=== PATIENT | female | born 1965 | race Two or more races ===

== ENCOUNTER 2019-12-20 08:07 | Observation (INO) | payer SELFPAY ==
[~2019-12-20] VITALS: Ht 160 cm; Wt 74.6 kg
--- NOTE | 2019-12-20 08:39 | NUR ---
PT AMBULATORY TO ROOM 9 W/ C/O RUQ ABD PAIN, SORE THROAT AND PAIN THAT RADIATES FROM ABDOMEN TO CHEST STARTED 1 MONTH AGO. PT STATES SHE DOES NOT HAVE ANY MEDICAL PROBLEMS. PT RESTING ON CAR[place]WO. NADN. MONITORS APPLIED. VSS. ERP DR. TONEY AT BEDSIDE. Addendum: 12/20/19 at 0841 by BNICHOLS PT ALSO HAS C/O SOB STARTED 1 MONTH AGO. DENIES COUGH/CLOSE CONTACT W/ CONFIRMED CASE COVID-19.
[2019-12-20] MEDS ORDERED: ASPIRIN 81 MG TABLET CHEW ONE (08:49)
--- NOTE | 2019-12-20 08:54 | NUR ---
REPORT GIVEN TO SHAYNA HE.
[2019-12-20] MEDS ORDERED: SODIUM CHLORIDE FLUSH 10ML SYR IVF ONE (09:00)
[2019-12-20] MEDS ORDERED: ASPIRIN 81 MG TABLET CHEW PO ONE (09:00)
[2019-12-20 09:18] LABS: BASOPHILS # (AUTO) 0.03 x10^3/uL (0-0.1); BASOPHILS % (AUTO) 1 % (0-1); EOSINOPHILS # (AUTO) 0.06 x10^3/uL (0-0.4); EOSINOPHILS % (AUTO) 1 % (1-7); LYMPHOCYTES # (AUTO) 1.77 x10^3/uL (1-3.4); LYMPHOCYTES % (AUTO) 32 % (22-44); MD NO; MEAN CORPUSCULAR HEMOGLOBIN 28.7 pg (27.0-34.8); MEAN CORPUSCULAR HGB CONC 33.3 g/dL (32.4-35.8); MEAN CORPUSCULAR VOLUME 86.1 fL (80-100); MEAN PLATELET VOLUME 8.6 fL (7.4-10.4); MONOCYTES # (AUTO) 0.39 x10^3/uL (0.2-0.8); MONOCYTES % (AUTO) 7 % (2-9); NEUTROPHILS # (AUTO) 3.29 x10^3/uL (1.8-6.8); NEUTROPHILS % (AUTO) 59 % (42-75); PLATELET COUNT 290 x10^3/uL (130-400); RED BLOOD COUNT 5.04 x10^6/uL (3.82-5.3); RED CELL DISTRIBUTION WIDTH 13.4 % (9.6-15.2)
[2019-12-20 09:30] LABS: ALBUMIN 3.8 g/dL (3.4-5.0); ANION GAP 5 mmol/L (5-15); CALCIUM 8.8 mg/dL (8.5-10.1); CHLORIDE 112 mmol/L (98-107)
[2019-12-20 09:36] LABS: ALANINE AMINOTRANSFERASE 30 U/L (12-78); ALKALINE PHOSPHATASE 81 U/L (45-117); BILIRUBIN,TOTAL 0.9 mg/dL (0.2-1.0); CREATININE 0.68 mg/dL (0.55-1.02); TOTAL PROTEIN 7.7 g/dL (6.4-8.2); TROPONIN I < 0.015 ng/mL (0.000-0.045)
[2019-12-20 09:39] LABS: MICROSCOPIC INDICATED
[2019-12-20] MEDS ORDERED: hydrALAzine 20 MG/ML, 1ML IVPush PRN (11:30)
[2019-12-20] MEDS ORDERED: LABETALOL 5MG/ML, 20ML IVPush PRN (11:30)
[2019-12-20] MEDS ORDERED: morphine SULFATE 10 MG/ML, 1ML IVPush PRN (11:30)
[2019-12-20] MEDS ORDERED: PROMETHAZINE 25 MG/ML, 1ML IM PRN (11:30)
[2019-12-20] MEDS ORDERED: PANTOPRAZOLE 40 MG IV IVPush SCH (11:30)
[2019-12-20] MEDS ORDERED: ACETAMINOPHEN 325 MG TABLET PO PRN (11:30)
[2019-12-20] MEDS ORDERED: ONDANSETRON 2MG/ML, 2ML IVPush PRN (11:30)
[2019-12-20 12:02] LABS: CHOLESTEROL, TOTAL 200 mg/dL (140-239)
[2019-12-20 12:05] LABS: CHOL/HDL RATIO 3.8; HDL CHOL % 26 % (28-40); HDL CHOLESTEROL (DIRECT) 52 mg/dL (40-60); LDL CHOLESTEROL,CALCULATED 130 mg/dL (54-169); LDL/HDL RATIO 2.5 (0.5-3.0); TRIGLYCERIDES 89 mg/dL (50-200); TROPONIN I < 0.015 ng/mL (0.000-0.045); VLDL CHOLESTEROL 18 mg/dL (0-25)
[2019-12-20 12:18] VITALS: BP 131/73
[2019-12-20] MEDS: HEPARIN 5,000 UNITS/ML, 1ML SQ SCH ×2 (13:20→21:44)
[2019-12-20 14:16] VITALS: BP 131/73
[2019-12-20 16:52] VITALS: BP 121/76
[2019-12-20 19:08] LABS: TROPONIN I < 0.015 ng/mL (0.000-0.045)
[2019-12-20] MEDS ORDERED: ATORVASTATIN 40 MG TABLET PO SCH (21:00)
[2019-12-20 21:43] VITALS: BP 123/84
[2019-12-21 01:15] VITALS: BP 111/68
[2019-12-21 02:06] LABS: BASOPHILS # (AUTO) 0.02 x10^3/uL (0-0.1); BASOPHILS % (AUTO) 0 % (0-1); EOSINOPHILS # (AUTO) 0.07 x10^3/uL (0-0.4); EOSINOPHILS % (AUTO) 1 % (1-7); LYMPHOCYTES # (AUTO) 2.45 x10^3/uL (1-3.4); LYMPHOCYTES % (AUTO) 44 % (22-44); MD NO; MEAN CORPUSCULAR HEMOGLOBIN 28.8 pg (27.0-34.8); MEAN CORPUSCULAR HGB CONC 33.5 g/dL (32.4-35.8); MEAN CORPUSCULAR VOLUME 85.9 fL (80-100); MEAN PLATELET VOLUME 8.6 fL (7.4-10.4); MONOCYTES # (AUTO) 0.41 x10^3/uL (0.2-0.8); MONOCYTES % (AUTO) 7 % (2-9); NEUTROPHILS # (AUTO) 2.68 x10^3/uL (1.8-6.8); NEUTROPHILS % (AUTO) 48 % (42-75); PLATELET COUNT 283 x10^3/uL (130-400); RED BLOOD COUNT 4.84 x10^6/uL (3.82-5.3); RED CELL DISTRIBUTION WIDTH 13.4 % (9.6-15.2)
[2019-12-21 02:17] LABS: ALANINE AMINOTRANSFERASE 40 U/L (12-78); ALBUMIN 3.5 g/dL (3.4-5.0); ANION GAP 4 mmol/L (5-15); CALCIUM 8.3 mg/dL (8.5-10.1); CHLORIDE 111 mmol/L (98-107); CREATININE 0.61 mg/dL (0.55-1.02)
[2019-12-21 02:20] LABS: ALKALINE PHOSPHATASE 79 U/L (45-117); BILIRUBIN,TOTAL 0.9 mg/dL (0.2-1.0); TOTAL PROTEIN 7.1 g/dL (6.4-8.2)
[2019-12-21 02:22] LABS: TROPONIN I < 0.015 ng/mL (0.000-0.045)
[2019-12-21] MEDS: HEPARIN 5,000 UNITS/ML, 1ML SQ SCH ×2 (06:06→13:43)
[2019-12-21] MEDS ORDERED: PANTOPRAZOLE 40MG TABLET PO SCH (07:30)
[2019-12-21 07:43] VITALS: BP 102/70
[2019-12-21] MEDS ORDERED: REGADENOSON 0.4 MG/5 ML SYRINGE ONE (08:03)
[2019-12-21] MEDS ORDERED: ASPIRIN 81 MG TABLET CHEW PO SCH (09:00)
[2019-12-21] MEDS ORDERED: POTASSIUM CHLORIDE 20 MEQ TAB.ER.PRT PO SCH (10:00)
[2019-12-21 12:48] VITALS: BP 109/72
[2019-12-21] MEDS ORDERED: ASPI-515 PO (13:16)
[2019-12-21] MEDS ORDERED: PANT40TA5 PO (13:16)
[2019-12-21] MEDS ORDERED: ATOR40TA78 PO (13:16)
[2019-12-21] MEDS ORDERED: POTA20TA6 PO (13:16)
[2019-12-21] MEDS ORDERED: IBUP-1902 PO ×3 (13:40→13:44)
[2019-12-21] MEDS ORDERED: IBUPROFEN 200 MG TABLET PO ONE (14:00)
== END 2019-12-21 15:00 | disposition home or self-care (01) ==
LOC: ED 08:56 → INTOOBSV 10:31 → EDIP 10:31 → 5SO 12:15 → DCLOUNGE 12-21 14:45
PROVIDERS: ADMIT Internal Medicine; ATTEND Internal Medicine
DX: R07.9 Chest pain, unspecified (principal); E87.6 Hypokalemia; R10.11 Right upper quadrant pain; Z79.82 Long term (current) use of aspirin; Z90.49 Acquired absence of other specified parts of digestive tract
CPT/HCPCS: 36415; 71045; 76700; 78452; 80053; 80061; 81001; 83690; 83880; 84484; 85025; 85379; 87086; 93005; 93017; 93306; 96372; 96374; 96375; 99285; A9502; C9113; G0378; J1644; J2270; J2785

== ENCOUNTER 2021-01-30 05:58 | Emergency (ER) | payer MEDICAID ==
[~2021-01-30] VITALS: Ht 172.7 cm; Wt 86.0 kg
[~2021-01-30 05:58] MED LIST: ASPI-963 PO; ATOR40TA78 PO; IBUP-1902 PO; PANT40TA6 PO; POTA-143 PO
[2021-01-30] MEDS ORDERED: SODIUM CHLORIDE FLUSH 10ML SYR IVF ONE (06:30)
[2021-01-30] MEDS ORDERED: SODIUM CHLORIDE 0.9% 1,000 ML IV ONE (06:30)
--- NOTE | 2021-01-30 06:40 | NUR ---
PT BIB [facility] FOR NEAR SYNCOPAL EPISODE. PT WAS WALKING TOWARDS THE FRONT DOOR WHEN SHE TOLD HER SON " I THINK I'M GOING TO PASS OUT" THE SON THEN CAUGHT HER AND EASED HER TO THE FLOOR. PT NEWLY DIAGNOISED WITH BREAST CANCER AND BEGAN RADIATION TREATMENTS TWO WEEKS AGO. PT REPORTS DIARRHEA IN THE MORNINGS AND NAUSEA. PT CONNECTED TO VITAL MACHINE. EKG DONE. FAMILLY AT BEDSIDE
--- NOTE | 2021-01-30 06:40 | NUR ---
LAB AT BEDSIDE.
[2021-01-30 06:48] LABS: BASOPHILS % (AUTO) 1 % (0-1); EOSINOPHILS % (AUTO) 2 % (1-7); LYMPHOCYTES % (AUTO) 31 % (22-44); MEAN CORPUSCULAR HEMOGLOBIN 30.2 pg (27.0-34.8); MEAN CORPUSCULAR HGB CONC 34.5 g/dL (32.4-35.8); MEAN PLATELET VOLUME 8.3 fL (7.4-10.4); MONOCYTES % (AUTO) 7 % (2-9); NEUTROPHILS % (AUTO) 60 % (42-75); PLATELET COUNT 244 x10^3/uL (130-400); RED CELL DISTRIBUTION WIDTH 12.5 % (9.6-15.2)
[2021-01-30 06:57] LABS: ALBUMIN 3.7 g/dL (3.4-5.0); ANION GAP 6 mmol/L (5-15); CALCIUM 8.5 mg/dL (8.5-10.1); CHLORIDE 109 mmol/L (98-107); CREATININE 0.63 mg/dL (0.55-1.02)
[2021-01-30 07:00] LABS: TROPONIN I < 0.015 ng/mL (0.000-0.045)
--- NOTE | 2021-01-30 07:06 | NUR ---
CARE TRANSFERED TO SHAYNA YUAN. REPORT GIVEN
--- NOTE | 2021-01-30 07:49 | NUR ---
PT GIVEN URINE CUP TO PROVIDE URINE SAMPLE. PT IV FLUIDS STARTED. PT DAUGHTER AT BEDSIDE TO TRANSLATE.
--- NOTE | 2021-01-30 08:40 | NUR ---
PT ABLE TO AMBLULATE IN HALLWAY STEADILY. PT REPORTED FEELING WEAK AND DIZZY WHILE UP. PT BACK IN BED, VITALS MONITORING RESUMED. PT ABLE TO ABMULATE TO BATHROOM STEADILY TO PROVIDE URINE SAMPLE. URINE WALKED TO LAB.
[2021-01-30 09:10] LABS: MICROSCOPIC INDICATED
[2021-01-30] MEDS ORDERED: MECLIZINE CHEWABLE 25 MG TAB ONE (09:24)
[2021-01-30] MEDS ORDERED: MECLIZINE CHEWABLE 25 MG TAB PO ONE (09:30)
[2021-01-30 10:27] VITALS: BP 128/63
== END 2021-01-30 10:48 ==
LOC: ED 07:41
DX: R55 Syncope and collapse (principal); R51.9 Headache, unspecified; R42 Dizziness and giddiness
CPT/HCPCS: 36415; 70450; 71045; 80048; 81001; 82040; 84484; 85025; 87086; 93005; 96360; 99285; J7030